=== PATIENT | male | born 1965 | race African-American/Black ===

== ENCOUNTER 2017-07-24 23:21 | Emergency (ER) | payer BC ==
[2017-07-25] MEDS: HYDROCODONE/APAP (10/325) TAB PO (00:57)
== END 2017-07-25 01:08 | disposition home or self-care (01) ==
LOC: FTE 23:21
DX: M54.9 Dorsalgia, unspecified (principal); I10 Essential (primary) hypertension; I25.10 Atherosclerotic heart disease of native coronary artery without angina pectoris; I25.2 Old myocardial infarction
CPT/HCPCS: 99283